=== PATIENT | female | born 1985 | race Two or more races ===

== ENCOUNTER 2024-05-05 21:15 | Inpatient (IN) | payer BC, OTHER ==
[~2024-05-05] VITALS: Ht 165.1 cm; Wt 250.0 kg
--- NOTE | 2024-05-05 21:44 | ED.PDOC ---
History of Present Illness HPI Comments 39 year old female came to ER due to right lower extremity swelling. Patient is morbidly obese, for the past week she has been having flu like symptoms with chills, cough, shortness of breath, nausea and vomiting. 3 days ago, noted pain and swelling or the right lower extremity with redness and tenderness of p alpation. Denies any recent trauma to the leg. Chief Complaint: Lower Extremity Time Seen by MD: 21:44 Reviewed Notes: Nurses Notes Allergies: Coded Allergies: NO KNOWN ALLERGIES (Unverified , 05/05/24) Information Source: Patient Mode of Arrival: EMS Severity: Moderate Timing: Days Duration: Since onset Prehospital treatment: None Medication Refill: For: Other Past Medical History Past Medical History (Other): Morbid obesity Surgical History: Denies all surgeries COSMETOLOGY INSTRUCTOR History: Denies all COSMETOLOGY INSTRUCTOR Hx Family History Family History: Reviewed,noncontributory to illness Social History Smoker: Non-Smoker Alcohol: Denies ETOH Use Drugs: Denies Drug Use Lives In: Home Constitutional: reports: chills, diaphoresis, fatigue, fever, malaise, weakness ; denies: sweats, others EENTM: reports: nose congestion; denies: blurred vision, double vision, ear bleeding, ear discharge, ear drainage, ear pain, ear ringing, eye pain, eye redness, hearing loss, mouth pain, mouth swelling, nasal discharge, nose bleeding, nose pain, photophobia, tearing, throat pain, throat swelling, voice changes, others Respiratory: reports: cough, SOB at rest, shortness of breath; denies: hemoptysis, orthopnea, SOB with excertion, stridor, wheezing, others Cardiovascular: denies: chest pain, dizzy spells, diaphoresis, Dyspnea on exertion, edema, irregular heart beat, left arm pain, lightheadedness, palpitations, PND, syncope, others Gastrointestinal: reports: nausea, vomiting; denies: abdomen distended, abdominal pain, blood streaked bowels, constipated, diarrhea, dysphagia, difficulty swallowing, hematemesis, melena, poor appetite, poor fluid intake, rectal bleeding, rectal pain, others Genitourinary: denies: abnormal vagina bleeding, burning, dyspareunia, dysuria, flank pain, frequency, hematuria, incontinence, pain, , vagina discharge, urgency, others Neurological: denies: dizziness, fainting, headache, left sided numbness, left sided weakness, numbness, paresthesia, pre-existing deficit, right sided numbness, right sided weakness, seizure, speech problems, tingling, tremors, weakness, others Musculoskeletal: reports: others (right lower leg swelling); denies: back pain, gout, joint pain, joint swelling, muscle pain, muscle stiffness, neck pain Integumetry: denies: bruises, change in color, change in hair/nails, dryness, laceration, lesions, lumps, rash, wounds, others Allergic/Immunocompromised: denies: Difficulty Healing, Frequent Infections, Hives, Itching, others Hematologic/Lymphatic: denies: anemia, blood clots, easy bleeding, easy bruising, swollen glands, others Endocrine: denies: excessive hunger, excessive sweating, excessive thirst, excessive urination, flushing, intolerance to cold, intolerance to heat, unexplained weight gain, unexplained weight loss, others Psychiatric: denies: anxiety, bipolar disorder, depression, hopeless, panic disorder, schizophrenia, sleepless, suicidal, others Physical Exam General Appearance: No Apparent Distress, Normal HEENT: Normal ENT Inspection, Pharynx Normal, TMs Normal Neck: Full Range of Motion, Non-Tender, Normal, Normal Inspection Respiratory: Chest Non-Tender, Lungs Clear, No Accessory Muscle Use, No Respiratory Distress, Normal Breath Sounds Cardiovascular: No Edema, No JVD, No Murmur, No Gallop, Normal Peripheral Pulses, Regular Rate/Rhythm Breast Exam: Deferred Gastrointestinal: No Organomegaly, Non Tender, No Pulsatile Mass, Normal Bowel Sounds, Soft Genitalia: Deferred Pelvic: Deferred Rectal: Deferred Extremities: No calf tenderness, Normal capillary refill, Normal inspection, Normal range of motion, Non-tender, No pedal edema Musculoskeletal : Apperance: Normal Neurologic: Alert, animal chiropractor II-XII nml as Tested, No Motor Deficits, Normal Affect, Normal Mood, No Sensory Deficits Cerebellar Function: Normal Reflexes: Normal Skin: Dry, Normal Color, Warm Lymphatic: No Adenopathy Was a procedure done? Was a procedure done?: No Differential Dx Considerations may include: anemia, electrolyte imbalance, viral syndrome, cellulitis, pulmonary emboli, deep venous thrombosis X-Ray, Labs, Meds, VS Vital Signs Date Time Temp Pulse Resp B/P (MAP) Pulse Ox O2 Delivery O2 Flow Rate FiO2 05/05/24 21:50 18 96 Room Air* 0 21 05/05/24 21:20 98.7 110 22 161/82 (108) 96 Lab Test 05/05/24 22:50 05/05/24 21:45 Range/Units Troponin I High Sensitivity 3 L 4 </=34 ng/L White Blood Count 13.0 H 4.4-10.8 10^3/uL Red Blood Count 4.65 4.0-5.20 10^6/uL Hemoglobin 13.5 12.2-16.2 g/dL Hematocrit 40.9 36.0-46.0 % Mean Corpuscular Volume 88.1 80.0-100.0 fL Mean Corpuscular Hemoglobin 29.0 28.0-32.0 pg Mean Corpuscular Hemoglobin Concent 32.9 32.0-36.0 g/dL Red Cell Distribution Width 15.2 H 11.8-14.3 % Platelet Count 395 140-450 10^3/uL Mean Platelet Volume 7.4 6.9-10.8 fL Neutrophils (%) (Auto) 75.9 37.0-80.0 % Lymphocytes (%) (Auto) 15.8 10.0-50.0 % Monocytes (%) (Auto) 6.1 0.0-12.0 % Eosinophils (%) (Auto) 1.7 0.0-7.0 % Basophils (%) (Auto) 0.5 0.0-2.0 % Neutrophils # (Auto) 9.8 H 1.6-8.6 10 ^3/uL Lymphocytes # (Auto) 2.0 0.4-5.4 10 ^3/uL Monocytes # (Auto) 0.8 0-1.3 10 ^3/uL Eosinophils # (Auto) 0.2 0-0.8 10 ^3/uL Basophils # (Auto) 0.1 0-0.2 10 ^3/uL Nucleated Red Blood Cells 0.1 % Prothrombin Time 11.5 9.3-11.8 sec Prothrombin Time INR 1.09 0.9-1.15 D-Dimer, Quantitative 1.55 H 0.0-0.49 mg/L FEU Sodium Level 138 136-145 mmol/L Potassium Level 3.5 3.5-5.1 mmol/L Chloride Level 104 98-107 mmol/L Carbon Dioxide Level 22 20-31 mmol/L Anion Gap 12 5-15 Blood Urea Nitrogen < 5 L 9-23 mg/dL Creatinine 0.71 0.550-1.02 mg/dL Glomerular Filtration Rate Calc 112 >90 mL/min BUN/Creatinine Ratio 7.0 L 10.0-20.0 Serum Glucose 183 H 74-106 mg/dL Calcium Level 9.6 8.7-10.4 mg/dL Total Bilirubin 0.9 0.2-1.0 mg/dL Aspartate Amino Transferase (AST) 19 13-40 U/L Alanine Aminotransferase (ALT) 15 7-40 U/L Alkaline Phosphatase 152 H 46-116 U/L B-Type Natriuretic Peptide 34.71 0-100 pg/mL Total Protein 7.8 5.7-8.2 g/dL Albumin 4.1 3.2-4.8 g/dL Beta HCG, Quantitative < 0.0 L 1.5-4.2 mIU/mL Current Medications Medications (Trade) Dose Ordered Sig/Daniel Route Start Time Stop Time Status Last Admin Albuterol (Ventolin Medneb) 5 mg ONCE ONCE [facility] 05/05/24 21:30 05/05/24 21:31 DC 05/05/24 21:56 Ipratropium [place] (Atrovent Medneb) 1 mg ONCE ONCE [facility] 05/05/24 21:30 05/05/24 21:31 DC 05/05/24 21:56 Time of 1ST Reevaluation: 21:37 Reevaluation 1ST: Unchanged Patient Education/Counseling: Diagnosis, Treatment Family Education/Counseling: No Family Present Departure 1 Departure Time of Disposition: 00:16 Impression: Primary Impression: Bronchospasm Additional Impression: Cellulitis of right leg Disposition: 01 HOME / SELF CARE / HOMELESS Condition: Stable Discharged With: Self Critical Care Note Critical Care Time?: No Stability Stability form required: No Heart Score Heart Score: Heart Score Response (Comments) Value History N/A 0 EKG N/A 0 Age N/A 0 Risk Factors N/A 0 Troponin N/A 0 Total 0 I personally scribed for AGATHA WADE MD ([email or web address]) on 05/05/24 at 21:44. Electronically submitted by Sameer Ga ([email or web address]). AGATHA WADE MD May 05, 2024 21:44
[2024-05-05 21:50] VITALS: O2SAT 96
[2024-05-05] MEDS: IPRATROPIUM BROM 0.5 MG/2.5ML INH SOL HHN ONE (21:56)
[2024-05-05] MEDS: ALBUTEROL SULF 2.5 MG/0.5ML(0.5%) NEB SOLN HHN ONE (21:56)
[2024-05-05 22:03] LABS: Basophils # (auto) 0.1 10 ^3/uL (0-0.2); Basophils % (auto) 0.5 % (0.0-2.0); Eosinophils # (auto) 0.2 10 ^3/uL (0-0.8); Eosinophils % (auto) 1.7 % (0.0-7.0); Hematocrit 40.9 % (36.0-46.0); Hemoglobin 13.5 g/dL (12.2-16.2); Lymphocytes % (auto) 15.8 % (10.0-50.0); Mean Corpuscular Hgb Conc. 32.9 g/dL (32.0-36.0); Mean Corpuscular Volume 88.1 fL (80.0-100.0); Monocytes # (auto) 0.8 10 ^3/uL (0-1.3); Monocytes % (auto) 6.1 % (0.0-12.0); Neutrophils # (auto) 9.8 10 ^3/uL (1.6-8.6); Neutrophils % (auto) 75.9 % (37.0-80.0); Nucleated Red Blood Cells % 0.1 %; Platelet Count (auto) 395 10^3/uL (140-450); Red Blood Cells 4.65 10^6/uL (4.0-5.20); Red Cell Distribution Width 15.2 % (11.8-14.3)
--- NOTE | 2024-05-05 22:07 | DVH ---
CHEST RADIOGRAPH Indication: sob Technique: Single frontal view of the chest was obtained Comparison: None Findings/ IMPRESSION: Mild cardiomegaly with findings suggestive of mild pulmonary vascular congestion .
[2024-05-05 22:18] LABS: Alanine Aminotransferase 15 U/L (7-40); Albumin 4.1 g/dL (3.2-4.8); Alkaline Phosphatase 152 U/L (46-116); Anion Gap 12 (5-15); Aspartate Aminotransferase 19 U/L (13-40); Calcium 9.6 mg/dL (8.7-10.4); Carbon Dioxide 22 mmol/L (20-31); Chloride 104 mmol/L (98-107); Glucose 183 mg/dL (74-106); Potassium 3.5 mmol/L (3.5-5.1); Sodium 138 mmol/L (136-145)
[2024-05-05 22:19] LABS: Bilirubin, Total 0.9 mg/dL (0.2-1.0); Total Protein 7.8 g/dL (5.7-8.2)
[2024-05-05 22:21] LABS: Blood Urea Nitrogen < 5 mg/dL (9-23)
[2024-05-05 22:37] LABS: INR 1.09 (0.9-1.15); Prothrombin Time 11.5 sec (9.3-11.8)
[2024-05-06] VITALS (10 sets, daily range): BP systolic 113–161; BP diastolic 51–82; PULSE 98–110; RESP 16–25; TEMP 97.5–98.6; O2SAT 92–99
[2024-05-06] MEDS ORDERED: CEPH250C PO (00:19)
[2024-05-06] MEDS ORDERED: BACDST PO (00:20)
[2024-05-06] MEDS ORDERED: ALBU108A5 IN (00:20)
[2024-05-06] MEDS: predniSONE 20 MG TAB PO ONE (02:08)
[2024-05-06] MEDS ORDERED: ONDANSETRON HCL 4 MG/2 ML VIAL IV PRN (03:30)
[2024-05-06] MEDS ORDERED: DOCUSATE SOD 100 MG CAP PO PRN (03:30)
[2024-05-06] MEDS ORDERED: ACETAMINOPHEN 325 MG TAB PO PRN (03:30)
--- NOTE | 2024-05-06 04:26 | DVHHP2 ---
History of Present Illness Reason for Visit: Cellulitis of right leg History of Present Illness The patient is a 39 years old female severely obese who denies past medical history presented to [facility] ED with complaint of right lower extremity swelling and redness. Patient reports for the past week she has been h aving chills, cough, shortness a breath, nausea, vomiting, getting worse today that prompted this visit. Patient was seen and evaluated in the ED, laboratory data shows elevated WBC 13.0, platelets 395, sodium 138, potassium three five, BUN < 5, creatinine 0.71, GFR 112, glucose 183, troponin 3, BNP 34.71, D-dimer 1.55, blood pressure 161/82, heart rate 110, temperature 98.7 F, O2 saturation 96% on oxygen. CT Angiography shows no evidence of pulmonary embolus; chest x- ray revealing mild cardiomegaly with findings suggestive of mild pulmonary vascular congestion. Patient was started IV antibiotic regimen Rocephin, please see medication orders section in the computer. On my assessment, patient denied chest pain, headache, no dizziness, no diaphoresis, no abdominal pain, no diarrhea, no nausea, no vomiting, fever, no chills. Patient was admitted for further evaluation and medical management. 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 Past Social History The patient lives at home, denies smoking, alcohol or illicit drugs abuse. Review of Systems Constitutional: Yes: Chills, Weakness, Malaise, Other (Fatigue); No: Fever, Sweats Eyes: No: Pain, Vision change, Conjunctivae inflammation, Eyelid inflammation, Other, Redness ENT: Nose congestion; No: Ear pain, Ear discharge, Nose pain, Nose discharge, Mouth pain, Mouth swelling, Throat pain, Throat swelling, Other Respiratory: Cough, Shortness of breath, Other (SOB at rest); No: Dry, SOB with excertion, Wheezing, Hemoptysis, Pleuritic Pain, Sputum, Wheezing Cardiovascular: No: Chest Pain, Palpitations, Orthopnea, Paroxysmal Noc. Dyspnea, Edema, Lt Headedness, Other Gastrointestinal: Nausea, Vomiting; No: Abdominal Pain, Diarrhea, Constipation, Melena, Hematochezia, Other Genitourinary: No Dysuria, No Frequency, No Incontinence, No Hematuria, No Retention, No Other Musculoskeletal: other (right lower leg swelling.); No: neck pain, shoulder pain, arm pain, back pain, hand pain, leg pain, foot pain Skin: No: Rash, Lesions, Jaundice, Bruising, Other Neurological: No: Weakness, Numbness, Incoordination, Change in speech, Confusion, Seizures, Other Allergies: Coded Allergies: NO KNOWN ALLERGIES (Unverified , 05/05/24) Medications Current Medications Medications Dose Ordered Sig/Daniel Route Start Time Stop Time Status Last Admin Dose Admin Albuterol 2.5 mg Q4HPRN PRN NEB 05/06/24 03:30 Ipratropium [place] 0.5 mg Q4HPRN PRN NEB 05/06/24 03:30 Methylprednisolone Sodium Succinate 40 mg Q8HR IV 05/06/24 04:00 Famotidine 20 mg Q12HR IV 05/06/24 10:00 Sodium Chloride 1,000 ml @ 60 mls/hr [id number] IV 05/06/24 03:30 Acetaminophen/ Hydrocodone Bitart 1 tab Q4HP PRN PO 05/06/24 03:30 Ondansetron HCl 4 mg Q4HP PRN IV 05/06/24 03:30 Docusate Sodium 100 mg BIDPRN PRN PO 05/06/24 03:30 Acetaminophen 650 mg Q6HP PRN PO 05/06/24 03:30 Hydralazine HCl 10 mg Q6HP PRN IV 05/06/24 03:45 Exam Vital Signs Vital Signs Date Time Temp Pulse Resp B/P (MAP) Pulse Ox O2 Delivery O2 Flow Rate FiO2 05/06/24 03:40 110 22 161/82 96 0.0 21 05/05/24 21:50 Room Air* 05/05/24 21:20 98.7 General Appearance: Alert, Oriented X3, Cooperative, No acute distress HEENT: Atraumatic, PERRLA, EOMI, Mucous membr. moist/pink Respiratory: Normal air movement, Other (Congestion) Cardiovascular: Regular rate, Normal S1, Normal S2, No murmurs Abdominal: Normal bowel sounds, Soft, No tenderness, No hepatospenomegaly, No masses Extremities: No clubbing, No cyanosis, No edema, Normal pulses, No tenderness/swelling Skin: No rashes, No breakdown, No significant lesion Neuro: Normal speech, Normal tone, Sensation intact, Cranial nerves 3-12 NL, Reflexes 2+, Other (Generalized weakness) Psych/Mental Status: Mental status NL, Mood NL Labs/Xrays Labs Test 05/05/24 22:50 05/05/24 21:45 Range/Units Troponin I High Sensitivity 3 L </=34 ng/L White Blood Count 13.0 H 4.4-10.8 10^3/uL Red Blood Count 4.65 4.0-5.20 10^6/uL Hemoglobin 13.5 12.2-16.2 g/dL Hematocrit 40.9 36.0-46.0 % Mean Corpuscular Volume 88.1 80.0-100.0 fL Mean Corpuscular Hemoglobin 29.0 28.0-32.0 pg Mean Corpuscular Hemoglobin Concent 32.9 32.0-36.0 g/dL Red Cell Distribution Width 15.2 H 11.8-14.3 % Platelet Count 395 140-450 10^3/uL Mean Platelet Volume 7.4 6.9-10.8 fL Neutrophils (%) (Auto) 75.9 37.0-80.0 % Lymphocytes (%) (Auto) 15.8 10.0-50.0 % Monocytes (%) (Auto) 6.1 0.0-12.0 % Eosinophils (%) (Auto) 1.7 0.0-7.0 % Basophils (%) (Auto) 0.5 0.0-2.0 % Neutrophils # (Auto) 9.8 H 1.6-8.6 10 ^3/uL Lymphocytes # (Auto) 2.0 0.4-5.4 10 ^3/uL Monocytes # (Auto) 0.8 0-1.3 10 ^3/uL Eosinophils # (Auto) 0.2 0-0.8 10 ^3/uL Basophils # (Auto) 0.1 0-0.2 10 ^3/uL Nucleated Red Blood Cells 0.1 % Prothrombin Time 11.5 9.3-11.8 sec Prothrombin Time INR 1.09 0.9-1.15 D-Dimer, Quantitative 1.55 H 0.0-0.49 mg/L FEU Sodium Level 138 136-145 mmol/L Potassium Level 3.5 3.5-5.1 mmol/L Chloride Level 104 98-107 mmol/L Carbon Dioxide Level 22 20-31 mmol/L Anion Gap 12 5-15 Blood Urea Nitrogen < 5 L 9-23 mg/dL Creatinine 0.71 0.550-1.02 mg/dL Glomerular Filtration Rate Calc 112 >90 mL/min BUN/Creatinine Ratio 7.0 L 10.0-20.0 Serum Glucose 183 H 74-106 mg/dL Calcium Level 9.6 8.7-10.4 mg/dL Total Bilirubin 0.9 0.2-1.0 mg/dL Aspartate Amino Transferase (AST) 19 13-40 U/L Alanine Aminotransferase (ALT) 15 7-40 U/L Alkaline Phosphatase 152 H 46-116 U/L B-Type Natriuretic Peptide 34.71 0-100 pg/mL Total Protein 7.8 5.7-8.2 g/dL Albumin 4.1 3.2-4.8 g/dL Beta HCG, Quantitative < 0.0 L 1.5-4.2 mIU/mL PATIENT: JAMIE RITTER ACCT: [id number] UNIT: [id number] : 1985 LOC: OVERFLOW ROOM / BED: [address] [place] [address] / A AGE / SEX: 39 / F ADM STATUS: ADM IN SERVICE 0320 ORDERING PHYSICIAN: DARA MCELROY DNP PROCEDURE(s): CTACH - CT ANGIO CHEST CONTRAST REASON: Elevated D-dimer ORDER NUMBER(s): [id number], ACCESSION NUMBER(s): [id number] Examination: CT CT ANGIO CHEST CONTRAST CLINICAL HISTORY: Elevated D-dimer Comparison: None Technique: Using helical technique, CTA of the chest was performed following administration of 100 cc of Omnipaque 350 intravenous contrast. The examination was timed to the arterial system to generate a CT angiographic study. 3D images were generated at an independent work station. Dose reduction techniques included automated exposure control. Radiation Dose Information: CT Dose: Dose-length product is 2248.95 mGy*cm Findings: Opacification in the assessment of the pulmonary artery is limited given patient body habitus and artifact as well as poor opacification of the subsegmental pulmonary arteries. The pulmonary artery appears normal in diameter without central focal filling defect. Segmental or subsegmental branches are markedly limited in evaluation. There is a prominent lymph node in the anterior mediastinum measuring 1.6 cm. The thoracic aorta appears normal in caliber and contour. Respiratory motion limits evaluation of the pulmonary parenchyma, however no focal consolidation, sizeable effusion, or pneumothorax. There is a small hiatal hernia. Visualized portions of the upper abdomen appear grossly unremarkable. IMPRESSION: 1. Markedly limited evaluation without findings to suggest central pulmonary embolus. 2. Nonspecific prominent 1.6 cm anterior mediastinal lymph node. ORDERING PHYSICIAN: AGATHA WADE MD PROCEDURE(s): CXRP - CHEST PORTABLE REASON: sob ORDER NUMBER(s): [id number], ACCESSION NUMBER(s): [id number] CHEST RADIOGRAPH Indication: sob Technique: Single frontal view of the chest was obtained Comparison: None Findings/ IMPRESSION: Mild cardiomegaly with findings suggestive of mild pulmonary vascular congestion. Assessment/Plan Assessment/Plan Cellulitis of right leg Morbid obesity Leukocytosis, unspecified Hyperglycemia Elevated D-dimer Generalized weakness Plan 1. Admit to Med-Surg unit 2. Breathing treatment 3. Pain control management 4. IV antibiotic management 5. Management of fluids and electrolytes 6. Consultation for hospitalist 7. Diagnostic test CT Angiography 8. DVT prophylaxis on Lovenox 9. Repeat labs CBC, CMP in a.m. 10. Continue with current medical management 11. Treatment plan discussed with patient and RN. Patient verbalized understanding. Plan discussed with: Patient, Other (RN) My Orders Orders - DARA MCELROY DNP Procedure Category Date Status Time Hemoglobin A1c LAB 05/06/24 Logged 03:20 Complete Blood Count LAB 05/06/24 Logged 04:00 Comprehensive LAB 05/06/24 Logged Metabolic Panel 04:00 Albuterol Medneb PHA 05/06/24 In Process (Ventolin Medneb) 03:30 Ipratropium Medneb PHA 05/06/24 In Process (Atrovent Medneb) 03:[address] 05/06/24 Logged Contrast 03:20 Methylprednisolone PHA 05/06/24 In Process Sod Succ (Solu Medrol 04:00 Famotidine Injection PHA 05/06/24 In Process (Pepcid Injection) 10:00 Allergies HERO 05/06/24 In Process 03:20 Code Status CODE 05/06/24 Transmitted 03:20 Sodium Chloride 0.9% PHA 05/06/24 In Process 03:30 Oxygen Per Hour RT 05/06/24 Transmitted 03:20 Hydrocodone-Acet PHA 05/06/24 In Process 5/325mg Tab ([place] 03:30 Ondansetron Hcl PHA 05/06/24 In Process (Zofran) 03:30 Docusate Sodium PHA 05/06/24 In Process Capsule (Colace 03:30 Complete Blood Count LAB 05/07/24 Verified 04:00 Comprehensive LAB 05/07/24 Verified Metabolic Panel 04:00 Cardiac DIET 05/06/24 Transmitted Diet-2gna,Lofat,Lochol Breakfast Condition: Serious HERO 05/06/24 In Process 03:20 Acetaminophen Tablet PHA 05/06/24 In Process (Tylenol Tablet) 03:30 Bedrest With Bathroom HERO 05/06/24 In Process Privileg 03:20 Sequential HERO 05/06/24 In Process Compression Device Hydralazine Injection PHA 05/06/24 In Process (Apresoline Inject 03:45 Problem List: (1) Cellulitis of right leg (2) Leukocytosis, unspecified (3) Hyperglycemia (4) Morbid obesity (5) Generalized weakness (6) Elevated d-dimer Date of Service: May 06, 2024 Billing Provider: DARA MCELROY DNP Common Visit Codes: [id number] INP/OBS CARE (HIGH) DARA MCELROY DNP May 06, 2024 04:26
[2024-05-06] MEDS ORDERED: NITROGLYCERIN 0.4 MG SL TAB SL PRN (04:30)
[2024-05-06] MEDS ORDERED: MORPHINE SULFATE INJ 2 MG/ml SYRG IV PRN (04:30)
[2024-05-06] MEDS: IOHEXOL 350 MG/ML 100ML IJ ONE (05:00)
[2024-05-06] MEDS: SODIUM CHLORIDE 0.9% 1,000 ML IV SCH (05:23)
[2024-05-06] MEDS: cefTRIAXone 2GM/50ML D5W 50 ML IV ONE (05:24)
[2024-05-06] MEDS: methylPREDNISolone SOD SUCC 40 MG/ML VL IV SCH (05:25)
[2024-05-06] MEDS: HYDROcodone-ACET 5/325MG TAB PO PRN (05:44)
--- NOTE | 2024-05-06 05:54 | DVH ---
Examination: CT CT ANGIO CHEST CONTRAST CLINICAL HISTORY: Elevated D-dimer Comparison: None Technique: Using helical technique, CTA of the chest was performed following administration of 100 cc of Omnipaque 350 intravenous contrast. The examination was timed to the arterial system to generate a CT angiographic study. 3D images were generated at an independent work station. Dose reduction tech niques included automated exposure control. Radiation Dose Information: CT Dose: Dose-length product is 2248.95 mGy*cm Findings: Opacification in the assessment of the pulmonary artery is limited given patient body habitus and art ifact as well as poor opacification of the subsegmental pulmonary arteries. The pulmonary artery appe ars normal in diameter without central focal filling defect. Segmental or subsegmental branches are m arkedly limited in evaluation. There is a prominent lymph node in the anterior mediastinum measuring 1.6 cm. The thoracic aorta appears normal in caliber and contour. Respiratory motion limits evaluation of the pulmonary parenchyma, however no focal consolidation, siz eable effusion, or pneumothorax. There is a small hiatal hernia. Visualized portions of the upper abd omen appear grossly unremarkable. IMPRESSION: 1. Markedly limited evaluation without findings to suggest central pulmonary embolus. 2. Nonspecific prominent 1.6 cm anterior mediastinal lymph node. HS:Y
[2024-05-06 07:29] LABS: Basophils # (auto) 0 10 ^3/uL (0-0.2); Basophils % (auto) 0.2 % (0.0-2.0); Eosinophils # (auto) 0 10 ^3/uL (0-0.8); Hematocrit 41.2 % (36.0-46.0); Hemoglobin 13.9 g/dL (12.2-16.2); Lymphocytes # (auto) 1.1 10 ^3/uL (0.4-5.4); Lymphocytes % (auto) 6.8 % (10.0-50.0); Mean Corpuscular Hemoglobin 29.3 pg (28.0-32.0); Mean Corpuscular Hgb Conc. 33.7 g/dL (32.0-36.0); Mean Corpuscular Volume 87.1 fL (80.0-100.0); Monocytes # (auto) 0.2 10 ^3/uL (0-1.3); Monocytes % (auto) 1.3 % (0.0-12.0); Neutrophils # (auto) 14.3 10 ^3/uL (1.6-8.6); Neutrophils % (auto) 91.7 % (37.0-80.0); Platelet Count (auto) 462 10^3/uL (140-450); Red Blood Cells 4.73 10^6/uL (4.0-5.20); Red Cell Distribution Width 15.1 % (11.8-14.3); White Blood Cell 15.6 10^3/uL (4.4-10.8)
[2024-05-06 07:42] LABS: Alanine Aminotransferase 14 U/L (7-40); Albumin 4.1 g/dL (3.2-4.8); Alkaline Phosphatase 157 U/L (46-116); Anion Gap 11 (5-15); Aspartate Aminotransferase 12 U/L (13-40); BUN/Creatinine Ratio 8.3 (10.0-20.0); Blood Urea Nitrogen 7 mg/dL (9-23); Calcium 9.8 mg/dL (8.7-10.4); Carbon Dioxide 22 mmol/L (20-31); Chloride 102 mmol/L (98-107); Glucose 232 mg/dL (74-106); Potassium 3.9 mmol/L (3.5-5.1); Sodium 135 mmol/L (136-145)
[2024-05-06 07:43] LABS: Bilirubin, Total 0.8 mg/dL (0.2-1.0); Total Protein 8.2 g/dL (5.7-8.2)
[2024-05-06] MEDS: ENOXAPARIN SOD 40 MG/0.4 ML SYRINGE SC SCH (10:28)
[2024-05-06] MEDS: FAMOTIDINE (10MG/ML) 2ML VL IV SCH (10:28)
--- NOTE | 2024-05-06 13:46 | DVHPN2 ---
Reviewed: Care Plan, H&P, Labs, Medications, Previous Orders, Radiology Changes from previous H/P or p: No Changes Eyes: No Pain, No Vision change, No Conjunctivae inflammation, No Eyelid inflammation, No Other, No Redness ENT: No Ear pain, No Ear discharge, No Nose pain, No Nose discharge; Nose congestion; No Mouth pain, No Mouth swelling, No Throat pain, No Throat swelling, No Other Cardiovascular: No Chest Pain, No Palpitations, No Orthopnea, No Paroxysmal Noc. Dyspnea, No Edema, No Lt Headedness, No Other Respiratory: Cough; No Dry; Shortness of breath; No SOB with excertion, No Wheezing, No Hemoptysis, No Pleuritic Pain, No Sputum; Other (SOB at rest) Gastrointestinal: Nausea, Vomiting; No Abdominal Pain, No Diarrhea, No Constipation, No Melena, No Hematochezia, No Other Genitourinary: No Dysuria, No Frequency, No Incontinence, No Hematuria, No Retention, No Other Musculoskeletal: other (right lower leg swelling.); No neck pain, No shoulder pain, No arm pain, No back pain, No hand pain, No leg pain, No foot pain Skin: No Rash, No Lesions, No Jaundice, No Bruising, No Other Objective Vitals Vital Signs Date Time Temp Pulse Resp B/P (MAP) Pulse Ox O2 Delivery O2 Flow Rate FiO2 05/06/24 12:00 105 21 97 Nasal Cannula* 2 28 05/06/24 12:00 98.4 121/64 (83) 98.4 Intake/Output Intake and Output 05/06/24 07:00 Intake Total 110 ml Balance 110 ml Intake IV Total 110 ml Medications Current Medications Medications Dose Ordered Sig/Daniel Route Start Time Stop Time Status Last Admin Dose Admin Albuterol 2.5 mg Q4HPRN PRN NEB 05/06/24 03:30 Ipratropium [place] 0.5 mg Q4HPRN PRN NEB 05/06/24 03:30 Methylprednisolone Sodium Succinate 40 mg Q8HR IV 05/06/24 04:00 05/06/24 05:25 40 MG Famotidine 20 mg Q12HR IV 05/06/24 10:00 05/06/24 10:28 20 MG Sodium Chloride 1,000 ml @ 60 mls/hr [id number] IV 05/06/24 03:30 05/06/24 05:23 60 MLS/HR Acetaminophen/ Hydrocodone Bitart 1 tab Q4HP PRN PO 05/06/24 03:30 05/06/24 05:44 1 TAB Ondansetron HCl 4 mg Q4HP PRN IV 05/06/24 03:30 Docusate Sodium 100 mg BIDPRN PRN PO 05/06/24 03:30 Acetaminophen 650 mg Q6HP PRN PO 05/06/24 03:30 Hydralazine HCl 10 mg Q6HP PRN IV 05/06/24 03:45 Ceftriaxone Sodium 50 ml @ 100 mls/hr DAILY@09 IV 05/07/24 09:00 Nitroglycerin 0.4 mg Q5MINP PRN SL 05/06/24 04:30 Morphine Sulfate 2 mg Q30M PRN IV 05/06/24 04:30 Enoxaparin Sodium 40 mg DAILY SC 05/06/24 10:00 05/06/24 10:28 40 MG Laboratory Results Laboratory Tests 05/06/24 07:05 Chemistry Test 05/05/24 21:45 05/06/24 07:05 Albumin 4.1 g/dL (3.2-4.8) 4.1 g/dL (3.2-4.8) Calcium Level 9.6 mg/dL (8.7-10.4) 9.8 mg/dL (8.7-10.4) Total Protein 7.8 g/dL (5.7-8.2) 8.2 g/dL (5.7-8.2) Coagulation Test 05/05/24 21:45 Prothrombin Time 11.5 sec (9.3-11.8) Prothrombin Time INR 1.09 (0.9-1.15) D-Dimer, Quantitative 1.55 mg/L FEU (0.0-0.49) H Cardiac Markers Test 05/05/24 21:45 B-Type Natriuretic Peptide 34.71 pg/mL (0-100) LFT Test 05/05/24 21:45 05/06/24 07:05 Alanine Aminotransferase (ALT) 15 U/L (7-40) 14 U/L (7-40) Alkaline Phosphatase 152 U/L (46-116) H 157 U/L (46-116) H Aspartate Amino Transferase (AST) 19 U/L (13-40) 12 U/L (13-40) L Total Bilirubin 0.9 mg/dL (0.2-1.0) 0.8 mg/dL (0.2-1.0) HgA1c, TSH Test 05/06/24 07:05 Hemoglobin A1c 9.5 % A1C (<5.7) H Labs and/or images reviewed: Labs reviewed by me, Image(s) reviewed by me Assessment/Plan Assessment/Plan Cellulitis of right leg: Rocephin Morbid obesity Leukocytosis, unspecified Hyperglycemia Elevated D-dimer PE ruled out Generalized weakness Time spent 45 minute Plan discussed with: Patient Date of Service: May 06, 2024 Billing Provider: BAIRON JACOBSEN MD Common Visit Codes: [id number] INP/OBS CARE(HIGH) BAIRON JACOBSEN MD May 06, 2024 13:46
[2024-05-06 18:06] LABS: Urine Bacteria FEW /hpf (None Seen); Urine Blood TRACE /uL (Negative); Urine Clarity Clear (Clear); Urine Color Light-Yellow (Yellow); Urine Protein, UAD Negative (Negative); Urine Specific Gravity 1.012 (1.001-1.035); Urine Urobilinogen Normal (Negative); Urine WBC 10 /hpf (0 - 5)
[2024-05-06] MEDS: ALBUTEROL SULF 2.5 MG/0.5ML(0.5%) NEB SOLN NEB PRN (22:16)
[2024-05-06] MEDS: IPRATROPIUM BROM 0.5 MG/2.5ML INH SOL NEB PRN (22:17)
[2024-05-07] VITALS (9 sets, daily range): BP systolic 127–141; BP diastolic 60–88; PULSE 86–101; RESP 16–19; TEMP 97.5–99.7; O2SAT 91–98
[2024-05-07 06:25] LABS: Basophils # (auto) 0.2 10 ^3/uL (0-0.2); Eosinophils # (auto) 0 10 ^3/uL (0-0.8); Hemoglobin 12.6 g/dL (12.2-16.2); Lymphocytes # (auto) 1.1 10 ^3/uL (0.4-5.4); Lymphocytes % (auto) 6.8 % (10.0-50.0); Mean Corpuscular Hemoglobin 29.8 pg (28.0-32.0); Mean Corpuscular Volume 87.8 fL (80.0-100.0); Monocytes # (auto) 0.4 10 ^3/uL (0-1.3); Monocytes % (auto) 2.5 % (0.0-12.0); Neutrophils # (auto) 14.8 10 ^3/uL (1.6-8.6); Neutrophils % (auto) 89.7 % (37.0-80.0); Nucleated Red Blood Cells % 0.1 %; Platelet Count (auto) 410 10^3/uL (140-450); Red Blood Cells 4.21 10^6/uL (4.0-5.20); Red Cell Distribution Width 15.1 % (11.8-14.3); White Blood Cell 16.5 10^3/uL (4.4-10.8)
[2024-05-07 06:29] LABS: Alanine Aminotransferase 17 U/L (7-40); Albumin 3.6 g/dL (3.2-4.8); Alkaline Phosphatase 132 U/L (46-116); Anion Gap 7 (5-15); Aspartate Aminotransferase 12 U/L (13-40); Bilirubin, Total 0.5 mg/dL (0.2-1.0); Blood Urea Nitrogen 8 mg/dL (9-23); Calcium 9.7 mg/dL (8.7-10.4); Carbon Dioxide 25 mmol/L (20-31); Chloride 103 mmol/L (98-107); Glucose 347 mg/dL (74-106); Potassium 4.4 mmol/L (3.5-5.1); Sodium 135 mmol/L (136-145); Total Protein 7.4 g/dL (5.7-8.2)
--- NOTE | 2024-05-07 08:25 | DVHPN2 ---
Reviewed: Care Plan, H&P, Labs, Medications, Previous Orders, Radiology Changes from previous H/P or p: No Changes Eyes: No Pain, No Vision change, No Conjunctivae inflammation, No Eyelid inflammation, No Other, No Redness ENT: No Ear pain, No Ear discharge, No Nose pain, No Nose discharge; Nose congestion; No Mouth pain, No Mouth swelling, No Throat pain, No Throat swelling, No Other Cardiovascular: No Chest Pain, No Palpitations, No Orthopnea, No Paroxysmal Noc. Dyspnea, No Edema, No Lt Headedness, No Other Respiratory: Cough; No Dry; Shortness of breath; No SOB with excertion, No Wheezing, No Hemoptysis, No Pleuritic Pain, No Sputum; Other (SOB at rest) Gastrointestinal: Nausea, Vomiting; No Abdominal Pain, No Diarrhea, No Constipation, No Melena, No Hematochezia, No Other Genitourinary: No Dysuria, No Frequency, No Incontinence, No Hematuria, No Retention, No Other Musculoskeletal: other (right lower leg swelling.); No neck pain, No shoulder pain, No arm pain, No back pain, No hand pain, No leg pain, No foot pain Skin: No Rash, No Lesions, No Jaundice, No Bruising, No Other Objective Vitals Vital Signs Date Time Temp Pulse Resp B/P (MAP) Pulse Ox O2 Delivery O2 Flow Rate FiO2 05/07/24 05:00 98.3 92 18 127/88 (101) 97 98.3 05/06/24 20:00 Nasal Cannula* 2 28 Intake/Output Intake and Output 05/07/24 07:00 Intake Total 1500 ml Balance 1500 ml Intake Oral 1500 ml # Voids 3 Medications Current Medications Medications Dose Ordered Sig/Daniel Route Start Time Stop Time Status Last Admin Dose Admin Albuterol 2.5 mg Q4HPRN PRN NEB 05/06/24 03:30 05/06/24 22:16 2.5 MG Ipratropium [place] 0.5 mg Q4HPRN PRN NEB 05/06/24 03:30 05/06/24 22:17 0.5 MG Methylprednisolone Sodium Succinate 40 mg Q8HR IV 05/06/24 04:00 05/07/24 06:03 40 MG Famotidine 20 mg Q12HR IV 05/06/24 10:00 05/06/24 21:36 20 MG Sodium Chloride 1,000 ml @ 60 mls/hr [id number] IV 05/06/24 03:30 05/06/24 05:23 60 MLS/HR Acetaminophen/ Hydrocodone Bitart 1 tab Q4HP PRN PO 05/06/24 03:30 05/06/24 17:36 1 TAB Ondansetron HCl 4 mg Q4HP PRN IV 05/06/24 03:30 Docusate Sodium 100 mg BIDPRN PRN PO 05/06/24 03:30 Acetaminophen 650 mg Q6HP PRN PO 05/06/24 03:30 Hydralazine HCl 10 mg Q6HP PRN IV 05/06/24 03:45 Ceftriaxone Sodium 50 ml @ 100 mls/hr DAILY@09 IV 05/07/24 09:00 Nitroglycerin 0.4 mg Q5MINP PRN SL 05/06/24 04:30 Morphine Sulfate 2 mg Q30M PRN IV 05/06/24 04:30 Enoxaparin Sodium 40 mg DAILY SC 05/06/24 10:00 05/06/24 10:28 40 MG Laboratory Results Laboratory Tests 05/07/24 05:27 Chemistry Test 05/07/24 05:27 Albumin 3.6 g/dL (3.2-4.8) Calcium Level 9.7 mg/dL (8.7-10.4) Total Protein 7.4 g/dL (5.7-8.2) LFT Test 05/07/24 05:27 Alanine Aminotransferase (ALT) 17 U/L (7-40) Alkaline Phosphatase 132 U/L (46-116) H Aspartate Amino Transferase (AST) 12 U/L (13-40) L Total Bilirubin 0.5 mg/dL (0.2-1.0) Urinalysis Test 05/06/24 00:00 Urine Color Light-yellow (Yellow) Urine Clarity Clear (Clear) Urine pH 7.0 (5.0-9.0) Urine Specific [place] 1.012 (1.001-1.035) Urine Protein Negative (Negative) Urine Ketones Negative (Negative) Urine Blood Trace /uL (Negative) H Urine Nitrite Negative (Negative) Urine Bilirubin Negative (Negative) Urine Urobilinogen Normal mg/dL (Negative) Urine Leukocyte Esterase Trace /uL (Negative) Urine RBC 28 /hpf (0 - 4) Urine WBC 10 /hpf (0 - 5) Urine Squamous Epithelial Cells Few /hpf (<5) Urine Bacteria Few /hpf (None Seen) H Urine Glucose Normal mg/dL (Normal) Labs and/or images reviewed: Labs reviewed by me, Image(s) reviewed by me Assessment/Plan Assessment/Plan Cellulitis of right leg: Rocephin Morbid obesity Leukocytosis, unspecified Hyperglycemia Newly diagnosed Uncontrolled type 2 diabetes: Insulin sliding scale A1c 9.5 Elevated D-dimer PE ruled out Generalized weakness Time spent 45 minute Plan discussed with: Patient My Orders Orders - BAIRON JACOBSEN MD Procedure Category Date Status Time * 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
[2024-05-07] MEDS ORDERED: DEXTROSE (50%) 50ML SYRG IV PRN (08:30)
[2024-05-07] MEDS: cefTRIAXone 1GM/50ML D5W 50 ML IV SCH (09:34)
[2024-05-07] MEDS: ACCU-CHEK COMFORT CURVE STRIP VI SCH (12:19)
[2024-05-07] MEDS: InsuLIN REG 1unit/0.01ml Soln (100units/ml) SC SCH ×2 (12:41→21:18)
--- NOTE | 2024-05-07 15:44 | MEDREC ---
FORM[facility]LY [facility], LATER [facility] Intervention Section I FOR[facility], LAT[facility] Intervention: Review courses of therapy (FOR CELLULITIS TREATMENT PLEASE CONSIDER CEFAZOLIN EMPIRIC TREATMENT INSTEAD OF CEFTRIAXONE) TABITHA DAMON PHARMACIST May 07, 2024 15:44
[2024-05-08] VITALS (9 sets, daily range): BP systolic 34–161; BP diastolic 76–103; PULSE 75–88; RESP 16–19; TEMP 97.4–97.8; O2SAT 91–98
--- NOTE | 2024-05-08 08:45 | DVHPN2 ---
Reviewed: Care Plan, H&P, Labs, Medications, Previous Orders, Radiology Changes from previous H/P or p: No Changes Eyes: No Pain, No Vision change, No Conjunctivae inflammation, No Eyelid inflammation, No Other, No Redness ENT: No Ear pain, No Ear discharge, No Nose pain, No Nose discharge; Nose congestion; No Mouth pain, No Mouth swelling, No Throat pain, No Throat swelling, No Other Cardiovascular: No Chest Pain, No Palpitations, No Orthopnea, No Paroxysmal Noc. Dyspnea, No Edema, No Lt Headedness, No Other Respiratory: Cough; No Dry; Shortness of breath; No SOB with excertion, No Wheezing, No Hemoptysis, No Pleuritic Pain, No Sputum; Other (SOB at rest) Gastrointestinal: Nausea, Vomiting; No Abdominal Pain, No Diarrhea, No Constipation, No Melena, No Hematochezia, No Other Genitourinary: No Dysuria, No Frequency, No Incontinence, No Hematuria, No Retention, No Other Musculoskeletal: other (right lower leg swelling.); No neck pain, No shoulder pain, No arm pain, No back pain, No hand pain, No leg pain, No foot pain Skin: No Rash, No Lesions, No Jaundice, No Bruising, No Other Objective Vitals Vital Signs Date Time Temp Pulse Resp B/P (MAP) Pulse Ox O2 Delivery O2 Flow Rate FiO2 05/08/24 08:24 97.5 79 16 142/76 (98) 93 97.5 05/08/24 07:24 Nasal Cannula 2.0 05/08/24 07:24 28 Intake/Output Intake and Output 05/08/24 07:00 Intake Total 3120 ml Output Total 5 ml Balance 3115 ml Intake Oral 2350 ml IV Total 770 ml Output Urine Total 5 ml # Voids 6 Medications Current Medications Medications Dose Ordered Sig/Daniel Route Start Time Stop Time Status Last Admin Dose Admin Albuterol 2.5 mg Q4HPRN PRN NEB 05/06/24 03:30 05/06/24 22:16 2.5 MG Ipratropium [place] 0.5 mg Q4HPRN PRN NEB 05/06/24 03:30 05/06/24 22:17 0.5 MG Methylprednisolone Sodium Succinate 40 mg Q8HR IV 05/06/24 04:00 05/08/24 05:53 40 MG Famotidine 20 mg Q12HR IV 05/06/24 10:00 05/07/24 21:31 20 MG Sodium Chloride 1,000 ml @ 60 mls/hr [id number] IV 05/06/24 03:30 05/07/24 12:45 60 MLS/HR Acetaminophen/ Hydrocodone Bitart 1 tab Q4HP PRN PO 05/06/24 03:30 05/07/24 21:54 1 TAB Ondansetron HCl 4 mg Q4HP PRN IV 05/06/24 03:30 Docusate Sodium 100 mg BIDPRN PRN PO 05/06/24 03:30 Acetaminophen 650 mg Q6HP PRN PO 05/06/24 03:30 Hydralazine HCl 10 mg Q6HP PRN IV 05/06/24 03:45 Ceftriaxone Sodium 50 ml @ 100 mls/hr DAILY@09 IV 05/07/24 09:00 05/07/24 09:34 100 MLS/HR Nitroglycerin 0.4 mg Q5MINP PRN SL 05/06/24 04:30 Morphine Sulfate 2 mg Q30M PRN IV 05/06/24 04:30 Enoxaparin Sodium 40 mg DAILY SC 05/06/24 10:00 05/07/24 09:35 40 MG Diagnostic Test (Pha) 1 strip ACHS 05/07/24 11:30 05/08/24 06:19 1 STRIP Insulin Human Regular HS SC 05/07/24 22:00 05/07/24 21:18 6 UNITS Insulin Human Regular AC SC 05/07/24 11:30 05/08/24 06:21 9 UNITS Dextrose 50 ml UD PRN IV 05/07/24 08:30 Laboratory Results Laboratory Tests 05/07/24 05:27 Urinalysis Test 05/06/24 00:00 Urine Color Light-yellow (Yellow) Urine Clarity Clear (Clear) Urine pH 7.0 (5.0-9.0) Urine Specific [place] 1.012 (1.001-1.035) Urine Protein Negative (Negative) Urine Ketones Negative (Negative) Urine Blood Trace /uL (Negative) H Urine Nitrite Negative (Negative) Urine Bilirubin Negative (Negative) Urine Urobilinogen Normal mg/dL (Negative) Urine Leukocyte Esterase Trace /uL (Negative) Urine RBC 28 /hpf (0 - 4) Urine WBC 10 /hpf (0 - 5) Urine Squamous Epithelial Cells Few /hpf (<5) Urine Bacteria Few /hpf (None Seen) H Urine Glucose Normal mg/dL (Normal) Labs and/or images reviewed: Labs reviewed by me, Image(s) reviewed by me Assessment/Plan Assessment/Plan Cellulitis of right leg: Rocephin Morbid obesity Leukocytosis, unspecified Acute Hyperglycemia with blood sugar 289 Newly diagnosed Uncontrolled type 2 diabetes: Insulin sliding scale A1c 9.5 Elevated D-dimer PE ruled out Generalized weakness Time spent 45 minute Needs Diabetic supplies at the time of discharge Plan discussed with: Patient My Orders Orders - BAIRON JACOBSEN MD Procedure Category Date Status Time *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
[2024-05-08] MEDS: hydrALAZINE HCL 20 MG/ML VL IV PRN (20:38)
[2024-05-09] VITALS (7 sets, daily range): BP systolic 145–164; BP diastolic 74–95; PULSE 63–85; RESP 18–20; TEMP 97.4–97.7; O2SAT 95–98
--- NOTE | 2024-05-09 09:07 | DVHPN2 ---
Reviewed: Care Plan, H&P, Labs, Medications, Previous Orders, Radiology Changes from previous H/P or p: No Changes Eyes: No Pain, No Vision change, No Conjunctivae inflammation, No Eyelid inflammation, No Other, No Redness ENT: No Ear pain, No Ear discharge, No Nose pain, No Nose discharge; Nose congestion; No Mouth pain, No Mouth swelling, No Throat pain, No Throat swelling, No Other Cardiovascular: No Chest Pain, No Palpitations, No Orthopnea, No Paroxysmal Noc. Dyspnea, No Edema, No Lt Headedness, No Other Respiratory: Cough; No Dry; Shortness of breath; No SOB with excertion, No Wheezing, No Hemoptysis, No Pleuritic Pain, No Sputum; Other (SOB at rest) Gastrointestinal: Nausea, Vomiting; No Abdominal Pain, No Diarrhea, No Constipation, No Melena, No Hematochezia, No Other Genitourinary: No Dysuria, No Frequency, No Incontinence, No Hematuria, No Retention, No Other Musculoskeletal: other (right lower leg swelling.); No neck pain, No shoulder pain, No arm pain, No back pain, No hand pain, No leg pain, No foot pain Skin: No Rash, No Lesions, No Jaundice, No Bruising, No Other Objective Vitals Vital Signs Date Time Temp Pulse Resp B/P (MAP) Pulse Ox O2 Delivery O2 Flow Rate FiO2 05/09/24 05:00 97.6 78 20 145/74 (97) 95 97.6 05/08/24 20:00 Room Air* 0 21 Intake/Output Intake and Output 05/09/24 07:00 Intake Total 3650 ml Output Total 1600 ml Balance 2050 ml Intake Oral 3600 ml IV Total 50 ml Output Urine Total 1600 ml # Voids 4 # Bowel Movements 4 Medications Current Medications Medications Dose Ordered Sig/Daniel Route Start Time Stop Time Status Last Admin Dose Admin Methylprednisolone Sodium Succinate 40 mg Q8HR IV 05/06/24 04:00 05/09/24 05:57 40 MG Famotidine 20 mg Q12HR IV 05/06/24 10:00 05/08/24 20:57 20 MG Sodium Chloride 1,000 ml @ 60 mls/hr [id number] IV 05/06/24 03:30 05/07/24 12:45 60 MLS/HR Acetaminophen/ Hydrocodone Bitart 1 tab Q4HP PRN PO 05/06/24 03:30 05/09/24 08:54 1 TAB Ondansetron HCl 4 mg Q4HP PRN IV 05/06/24 03:30 Docusate Sodium 100 mg BIDPRN PRN PO 05/06/24 03:30 Acetaminophen 650 mg Q6HP PRN PO 05/06/24 03:30 Hydralazine HCl 10 mg Q6HP PRN IV 05/06/24 03:45 05/08/24 20:38 10 MG Ceftriaxone Sodium 50 ml @ 100 mls/hr DAILY@09 IV 05/07/24 09:00 05/08/24 09:34 100 MLS/HR Nitroglycerin 0.4 mg Q5MINP PRN SL 05/06/24 04:30 Morphine Sulfate 2 mg Q30M PRN IV 05/06/24 04:30 Enoxaparin Sodium 40 mg DAILY SC 05/06/24 10:00 05/08/24 09:34 40 MG Diagnostic Test (Pha) 1 strip ACHS 05/07/24 11:30 05/09/24 05:57 1 STRIP Insulin Human Regular HS SC 05/07/24 22:00 05/08/24 21:04 8 UNITS Insulin Human Regular AC SC 05/07/24 11:30 05/09/24 05:58 9 UNITS Dextrose 50 ml UD PRN IV 05/07/24 08:30 Laboratory Results Laboratory Tests 05/07/24 05:27 Urinalysis Test 05/06/24 00:00 Urine Color Light-yellow (Yellow) Urine Clarity Clear (Clear) Urine pH 7.0 (5.0-9.0) Urine Specific [place] 1.012 (1.001-1.035) Urine Protein Negative (Negative) Urine Ketones Negative (Negative) Urine Blood Trace /uL (Negative) H Urine Nitrite Negative (Negative) Urine Bilirubin Negative (Negative) Urine Urobilinogen Normal mg/dL (Negative) Urine Leukocyte Esterase Trace /uL (Negative) Urine RBC 28 /hpf (0 - 4) Urine WBC 10 /hpf (0 - 5) Urine Squamous Epithelial Cells Few /hpf (<5) Urine Bacteria Few /hpf (None Seen) H Urine Glucose Normal mg/dL (Normal) Labs and/or images reviewed: Labs reviewed by me, Image(s) reviewed by me Assessment/Plan Assessment/Plan Cellulitis of right leg: Rocephin Morbid obesity Leukocytosis, unspecified Acute Hyperglycemia with blood sugar 289 Newly diagnosed Uncontrolled type 2 diabetes: Insulin sliding scale A1c 9.5 Elevated D-dimer PE ruled out Generalized weakness Plan discussed with: Patient Date of Service: May 09, 2024 Billing Provider: BAIRON JACOBSEN MD Common Visit Codes: [id number] INP/OBS CARE(HIGH) BAIRON JACOBSEN MD May 09, 2024 09:07
[2024-05-09] MEDS ORDERED: CLIN1CAP70 PO (09:08)
[2024-05-09] MEDS ORDERED: METF-490 PO (09:14)
--- NOTE | 2024-05-09 09:17 | DVHDS2 ---
Discharge Summary Date of Admission May 06, 2024 at 04:22 Date of Discharge: May 09, 2024 Admitting Diagnosis Cellulitis right lower extremity Wounds: Cellulitis right lower extremity Labs/Diagnostic Data: Laboratory Results Test 05/09/24 05:34 05/07/24 05:27 05/06/24 07:05 05/06/24 00:00 POC Glucose 272 mg/dl (70-106) White Blood Count 16.5 10^3/uL (4.4-10.8) Red Blood Count 4.21 10^6/uL (4.0-5.20) Hemoglobin 12.6 g/dL (12.2-16.2) Hematocrit 37.0 % (36.0-46.0) Mean Corpuscular Volume 87.8 fL (80.0-100.0) Mean Corpuscular Hemoglobin 29.8 pg (28.0-32.0) Mean Corpuscular Hemoglobin Concent 34.0 g/dL (32.0-36.0) Red Cell Distribution Width 15.1 % (11.8-14.3) Platelet Count 410 10^3/uL (140-450) Mean Platelet Volume 7.9 fL (6.9-10.8) Neutrophils (%) (Auto) 89.7 % (37.0-80.0) Lymphocytes (%) (Auto) 6.8 % (10.0-50.0) Monocytes (%) (Auto) 2.5 % (0.0-12.0) Eosinophils (%) (Auto) 0.0 % (0.0-7.0) Basophils (%) (Auto) 1.0 % (0.0-2.0) Neutrophils # (Auto) 14.8 10 ^3/uL (1.6-8.6) Lymphocytes # (Auto) 1.1 10 ^3/uL (0.4-5.4) Monocytes # (Auto) 0.4 10 ^3/uL (0-1.3) Eosinophils # (Auto) 0 10 ^3/uL (0-0.8) Basophils # (Auto) 0.2 10 ^3/uL (0-0.2) Nucleated Red Blood Cells 0.1 % Sodium Level 135 mmol/L (136-145) Potassium Level 4.4 mmol/L (3.5-5.1) Chloride Level 103 mmol/L (98-107) Carbon Dioxide Level 25 mmol/L (20-31) Anion Gap 7 (5-15) Blood Urea Nitrogen 8 mg/dL (9-23) Creatinine 0.80 mg/dL (0.550-1.02) Glomerular Filtration Rate Calc 97 mL/min (>90) BUN/Creatinine Ratio 10.0 (10.0-20.0) Serum Glucose 347 mg/dL (74-106) Calcium Level 9.7 mg/dL (8.7-10.4) Total Bilirubin 0.5 mg/dL (0.2-1.0) Aspartate Amino Transferase (AST) 12 U/L (13-40) Alanine Aminotransferase (ALT) 17 U/L (7-40) Alkaline Phosphatase 132 U/L (46-116) Total Protein 7.4 g/dL (5.7-8.2) Albumin 3.6 g/dL (3.2-4.8) Hemoglobin A1c 9.5 % A1C (<5.7) Urine Color Light-yellow (Yellow) Urine Clarity Clear (Clear) Urine pH 7.0 (5.0-9.0) Urine Specific [place] 1.012 (1.001-1.035) Urine Protein Negative (Negative) Urine Ketones Negative (Negative) Urine Blood Trace /uL (Negative) Urine Nitrite Negative (Negative) Urine Bilirubin Negative (Negative) Urine Urobilinogen Normal mg/dL (Negative) Urine Leukocyte Esterase Trace /uL (Negative) Urine RBC 28 /hpf (0 - 4) Urine WBC 10 /hpf (0 - 5) Urine Squamous Epithelial Cells Few /hpf (<5) Urine Bacteria Few /hpf (None Seen) Urine Glucose Normal mg/dL (Normal) Test 05/05/24 22:50 05/05/24 21:45 Troponin I High Sensitivity 3 ng/L (</=34) Prothrombin Time 11.5 sec (9.3-11.8) Prothrombin Time INR 1.09 (0.9-1.15) D-Dimer, Quantitative 1.55 mg/L FEU (0.0-0.49) B-Type Natriuretic Peptide 34.71 pg/mL (0-100) Beta HCG, Quantitative < 0.0 mIU/mL (1.5-4.2) Other Laboratory Tests 05/07/24 05:27 Brief Hx & Hospital Course: 39-year-old morbidly obese weight of 250 kilos came in complaining of infection in the right lower leg. The patient was diagnosed with a cellulitis right lower leg treated with Rocephin. Patient had acute hyperglycemia of 289 no previous history of diabetes A1c 9.5 placed on insulin D-dimer elevated PE ruled out patient feels better being discharged home on clindamycin for cellulitis and metformin for newly diagnosed diabetes prescription given for Accu-Chek machine lancets and test strips. Patient was educated about her diabetes. She will follow up with the primary Dr in one week Consults/Reason for consult None Operations or Procedures None Condition at Discharge: Fair Final Diagnosis/Problems List Cellulitis of right leg: Rocephin Morbid obesity Leukocytosis, unspecified Acute Hyperglycemia with blood sugar 289 Newly diagnosed Uncontrolled type 2 diabetes: Insulin sliding scale A1c 9.5 Elevated D-dimer PE ruled out Generalized weakness Discharge Disposition: Home Discharge Instruct/Medications Diet: Cardiac 2g Na,low cholest Activity: Light activity Follow Up/Referral: Follow up with your primary Dr Check your blood sugar 3 times a day and take diabetes medications as prescribed Medications: Metformin 1000 mg p.o. b.i.d. 180 Clindamycin 300 mg PO TID # 45 39 (Time taken for discharge summary 39 minutes) Discharge Statement: "Patient was advised to return to the ER or call 911 if any headaches, dizziness, shortness of breath, chest pain, abdominal pain, bleeding, fevers, or worsening of medical condition. Patient was counseled about treatment plan, medications, possible side effects, patientverbalized understanding. All questions were answered to the best of my ability. This discharge took greater then 30 minutes in planning, reviewing documentation, counseling the patient, and discussing with other team members." ASSESSMENT ASSESSMENT Hospital Course Improved Assessment Cellulitis of right leg: Rocephin Morbid obesity Leukocytosis, unspecified Acute Hyperglycemia with blood sugar 289 Newly diagnosed Uncontrolled type 2 diabetes: Insulin sliding scale A1c 9.5 Elevated D-dimer PE ruled out Generalized weakness Date of Service: May 09, 2024 Billing Provider: BAIRON JACOBSEN MD Common Visit Codes: [id number] DISCH DAY >30min BAIRON JACOBSEN MD May 09, 2024 09:17
[2024-05-09] MEDS: INFLUENZA TRIVALENT 2024-2025 0.5 ML INJ IM ONE (10:51)
[2024-05-09] MEDS: cloNIDine 0.2 mg/24hr 7DAY PATCH TD ONE (13:00)
== END 2024-05-09 14:00 | disposition home or self-care (01) | DRG 603 ==
LOC: EDBD 21:15 → EDUNIT# 21:15 → ER 21:20 → OVERFLOW 05-06 04:22 → CENTRAL 05-06 14:39
PROVIDERS: ADMIT Nurse Practitioner Family; ATTEND Family Medicine
DX: L03.115 Cellulitis of right lower limb (principal); Z68.45 Body mass index [BMI] 70 or greater, adult; E11.65 Type 2 diabetes mellitus with hyperglycemia; J98.01 Acute bronchospasm; E66.01 Morbid (severe) obesity due to excess calories
CPT/HCPCS: 36415; 71045; 71275; 80053; 81001; 82962; 83036; 83880; 84484; 84702; 85025; 85379; 85610; 94640; G0378; J1815; J3490